=== PATIENT | female | born 1990 | race Caucasian/White ===

== ENCOUNTER 2016-11-06 18:50 | Observation (INO) ==
--- NOTE | 2016-11-06 19:02 | Emergency Department Note ---
Disposition Clinical Impression: UTI (urinary tract infection), Dehydration, , Medical non-compliance Disposition: Admitted As Inpatient Condition: Fair Referrals: NO,PCP [Primary Care Provider] - Forms: Work/School Release, ED Satisfaction Letter Time of Disposition: 21:29 (air whitley) Abdominal Pain HPI - General Chief Complaint: ED Abdominal Pain Stated Complaint: right flank pain /frequent urination Time Seen by Provider: 11/06/16 18:54 Source: patient Mode of arrival: wheelchair Nursing Notes Reviewed: Yes - History of Present Illness HPI Narrative: 26-year-old female who returns after being seen on Tuesday earlier this week where she left before obtaining all laboratory results because she was nervous and anxious patient presents back to the emergency stating she is having bilateral flank pain patient states that she does not feel any better nothing she does makes it worse or better she states that the Suboxone that she is taking is no relief for she denies the lightheadedness dizziness still states she is having some fevers and chills she denies vaginal pain and discharge states her last menstrual period was 3 months 4 months ago denies any difficulty with bowel movement patient has chest pain chest pressure palpitations denies cough hemoptysis or sputum production patient states all the pain is in the flank region she denies any one point specific tenderness Pt Subjective Complaint: flank pain Onset (ago): day(s) (6) Consistency: constant Location: bilateral flank Pain Severity: severe Pain Scale: 10 Quality: aching Improves with: nothing Worsens with: movement Context: other (Miscarriage in April of this year) Associated symptoms: Reports: nausea, fever. Denies: vomiting, diarrhea, chills , constipation, dysuria, hematemesis, hematochezia, melena, hematuria, anorexia , syncope Treatments prior to arrival: none - Related Data Home Medications Medication Instructions Recorded Confirmed Buprenorphine HCl/Naloxone HCl 1 each SL DAILY 11/06/16 11/06/16 [Suboxone 8 mg-2 mg Sl Film] Allergies Allergy/AdvReac Type Severity Reaction Status Date / Time No Known Allergies Allergy Verified 11/02/16 15:53 All systems ED: reviewed and negative except as stated. Constitutional: Denies: fever, chills, weakness Eyes: Denies: eye pain, eye discharge ENT ED: Denies: ear pain, throat pain Cardiovascular: Denies: chest pain, palpitations, dyspnea on exertion Respiratory: Denies: cough, dyspnea, wheezes Gastrointestinal: Reports: nausea. Denies: abdominal pain, vomiting, diarrhea Genitourinary: Reports: dysuria, frequency. Denies: urgency Musculoskeletal: Reports: back pain. Denies: neck pain Integumentary: Denies: rash, abrasion Neurological: Denies: headache, weakness Psychiatric: Denies: anxiety, depression Endocrine: Denies: fatigue, heat or cold intolerance Hematological/Lymphatic: Denies: easy bleeding Abdominal Pain PMH - Past Medical History Medical history: Reports: asthma, hepatitis, other Female Surgical History: Reports: other Psychiatric history: Reports: anxiety - Social History Smoking status: Current every day smoker Alcohol use: Reports: none Drug use: Reports: opiates, IV Drug Use Physical Exam - General Limitations: no limitations General appearance: alert, in no apparent distress, cachectic - Head Head exam: atraumatic, normocephalic, normal inspection - Eye Eye exam: Present: normal appearance, PERRL, EOMI - ENT ENT exam: normal exam, normal oropharynx, mucous membranes moist, TM's normal bilaterally, normal external ear exam - Neck Neck exam: Present: normal inspection, full ROM, trachea midline - Chest Chest inspection: Present: normal inspection, symmetric chest wall rise - Respiratory Respiratory exam: Present: normal lung sounds bilaterally - Cardiovascular Cardiovascular exam: Present: regular rate, normal rhythm, normal heart sounds - Abdominal Exam Abdominal exam: Present: soft, Non-Tender, normal bowel sounds. Absent: mass, pulsatile mass - Extremities Exam Extremities exam: Present: normal inspection, full ROM, normal capillary refill. Absent: tenderness, joint swelling - Expanded Lower Extremity Exam Neurovascular/Tendon exam: Present: normal capillary refill, normal fine/light touch Gait: observed and normal - Back Exam Back exam: Present: normal inspection, tenderness, CVA tenderness (R), CVA tenderness (L), muscle spasm, paraspinal tenderness - Neurological Exam Neurological exam: Present: alert, oriented X3, CN II-XII intact, normal gait - Psychiatric Psychiatric exam: Present: normal affect, normal mood - Skin Skin exam: Present: warm, dry, intact, normal color Course Course Narrative: Aches and seen and examined laboratory data was obtained revealing laboratory data is relatively unchanged with the exception of an increase in the white count from the day prior with her still continued complaining of flank pain options do consider the etiologies for this she has IV fluids running at this time patient is agreeable to stay and have further workup done at this time she has family with her the other day she did not but the results having been noted I contacted Dr. Paz Diego at [facility] explained concerns and need for additional testing which includes an ultrasound considerations though also have to include the possibility of an epidural abscess at abscess because her history of drug abuse with her being a very poor historian in regards to her pain in her back and flank region but one would also have to consider the possibly is of infection within the pelvis revealed the postvisit appendicitis gallbladder disease peptic ulcer disease highly nephritis kidney stone with her being in the first trimester benefits from using ultrasound versus x-ray would be much more beneficial and decreased limps a exposure to the fetus these capabilities are not available my facility Vital Signs Temperature 98.2 F 11/06/16 18:54 Pulse Rate 88 11/06/16 18:54 Respiratory Rate 18 11/06/16 18:54 Blood Pressure 104/75 11/06/16 18:54 O2 Sat by Pulse Oximetry 98 11/06/16 18:54 Temperature 101.4 F H 11/06/16 19:58 Pulse Rate 113 11/06/16 19:58 Respiratory Rate 22 11/06/16 19:58 Blood Pressure 104/75 11/06/16 18:56 O2 Sat by Pulse Oximetry 97 11/06/16 19:58 Oxygen Delivery Oxygen Delivery Room Air Abdominal Pain - Differential Diagnosis Differential Diagnosis: Likely: abdominal pain non-specific, abdominal pain mimics ectopic , calculus of kidney - Medical Records Medical records reviewed: Yes I reviewed the patient's medical records. - Lab Data Lab results reviewed: Yes I reviewed the patient's lab results. Result diagrams: 11/06/16 19:13 11/06/16 19:13 Lab Results 11/06/16 11/06/16 11/06/16 Range/Units 19:13 19:13 19:44 WBC 23.9 H (4.3-11.1) K/mcL RBC 3.74 L (3.82-4.97) M/mcL Hgb 11.2 L (11.5-15.4) g/dL Hct 32.5 L (35.3-44.9) % MCV 86.9 (83.0-100.0) fL MCH 29.9 (28.0-33.3) pg MCHC 34.5 (31.6-35.5) g/dL RDW 13.6 (11.5-14.5) % Plt Count 429 H (140-400) K/mcL MPV 8.3 L (9.4-12.4) fL Immature Gran % 0.7 (0-4) % Seg Neutrophils % 82.2 % Lymphocytes % 11.6 % Monocytes % 5.3 % Eosinophils % 0.0 % Basophils % 0.2 % Neutrophils # 19.7 H (1.6-8.9) K/mcL Lymphocytes # 2.8 (0.6-4.6) K/mcL Monocytes # 1.3 (0.0-1.3) K/mcL Eosinophils # 0.0 (0.0-0.6) K/mcL Basophils # 0.1 (0.0-0.2) K/mcL VBG Lactic Acid 1.3 (0.5-2.2) mmol/L Sodium 131 L (136-145) mEq/L Potassium 4.2 (3.5-4.5) mEq/L Chloride 98 (98-109) mEq/L Carbon Dioxide 21 (19-29) mEq/L BUN 7 (7-20) mg/dL Creatinine 0.58 (0.57-1.11) mg/dL Est GFR ( Amer) > 60 (> 60) Est GFR (Non-Af Amer) > 60 (> 60) BUN/Creatinine Ratio 12 (6-26) Glucose 105 H (70-99) mg/dL Calculated Osmolality 270 L (280-300) Calcium 9.2 (8.6-10.8) mg/dL Total Bilirubin 0.4 (0.2-1.2) mg/dL AST 26 (5-34) Units/L ALT 61 H (0-55) Units/L Alkaline Phosphatase 94 (38-126) Units/L Serum Total Protein 7.0 (6.0-8.3) g/dL Albumin 2.4 L (3.5-5.0) g/dL Globulin 4.6 H (2.4-3.5) g/dL Albumin/Globulin Ratio 0.5 L (1.1-2.2) Critical Care Time Critical Care Time: No
[2016-11-06 19:21] LABS: Basophils % 0.2 %; Hematocrit 32.5 % (35.3-44.9); Hemoglobin 11.2 g/dL (11.5-15.4); Immature Granulocytes % 0.7 % (0-4); Lymphocytes # 2.8 K/mcL (0.6-4.6); Lymphocytes % 11.6 %; Mean Corpuscular HGB Conc 34.5 g/dL (31.6-35.5); Mean Corpuscular Hemoglobin 29.9 pg (28.0-33.3); Mean Corpuscular Volume 86.9 fL (83.0-100.0); Mean Platelet Volume 8.3 fL (9.4-12.4); Monocytes # 1.3 K/mcL (0.0-1.3); Monocytes % 5.3 %; Platelet Count 429 K/mcL (140-400); Red Blood Count 3.74 M/mcL (3.82-4.97); Red Cell Distribution Width 13.6 % (11.5-14.5); Segmented Neutrophils % 82.2 %
[2016-11-06 19:26] LABS: Basophils # 0.1 K/mcL (0.0-0.2); Neutrophils # 19.7 K/mcL (1.6-8.9)
[2016-11-06 19:39] LABS: Alanine Aminotransferase 61 Units/L (0-55); Albumin 2.4 g/dL (3.5-5.0); Albumin/Globulin Ratio 0.5 (1.1-2.2); Alkaline Phosphatase 94 Units/L (38-126); Aspartate Amino Transferase 26 Units/L (5-34); BUN/Creatinine Ratio 12 (6-26); Bilirubin,Total 0.4 mg/dL (0.2-1.2); Blood Urea Nitrogen 7 mg/dL (7-20); Calcium 9.2 mg/dL (8.6-10.8); Carbon Dioxide 21 mEq/L (19-29); Chloride 98 mEq/L (98-109); Globulin 4.6 g/dL (2.4-3.5); Glucose 105 mg/dL (70-99); Osmolality,Calculated 270 (280-300); Potassium 4.2 mEq/L (3.5-4.5); Sodium 131 mEq/L (136-145); eGFR For African Americans > 60 (> 60); eGFR For Non-African Americans > 60 (> 60)
[2016-11-06] MEDS: 0.9 % Sodium Chloride 1,000 ML IVC ONE ×2 (19:56→20:57)
[2016-11-06 20:18] LABS: Bilirubin,Urine Negative (Negative); Blood,Urine Small (Negative); Clarity,Urine Cloudy (Clear); Color,Urine Yellow (Yellow); Glucose,Urine (UA) Normal (Normal); Ketones,Urine Negative (Negative); Leukocyte Esterase,Urine Moderate (Negative); Nitrite,Urine Positive (Negative); Protein,Urine 100 mg/dL (Neg-Trace); Urobilinogen,Urine Normal (Normal)
[2016-11-06] MEDS ORDERED: 0.9 % Sodium Chloride 1,000 ML IVC SCH (20:45)
[2016-11-06] MEDS ORDERED: 0.9 % Sodium Chloride Mini Bag 100 ML ONE (21:06)
[2016-11-06 21:09] LABS: Amphetamine Screen,Urine Positive ng/mL (Cutoff=1000); Barbiturate Screen,Urine Negative ng/mL (Cutoff=200); Benzodiazepines Screen,Urine Negative ng/mL (Cutoff=200); Cannabinoid Screen,Urine Positive ng/mL (Cutoff = 50); Cocaine Screen,Urine Negative ng/mL (Cutoff= 300); Opiate Screen,Urine Negative ng/mL (Cutoff=300); Phencyclidine Screen,Urine Negative ng/mL (Cutoff=25)
[2016-11-06] MEDS ORDERED: Ondansetron ODT 4 MG TAB.RAPDIS SL PRN (22:22)
[2016-11-06] MEDS ORDERED: Naloxone 0.4 MG/ML INJ IVP PRN (22:22)
[2016-11-06] MEDS: 0.9 % Sodium Chloride 1,000 ML IVC SCH (22:34)
[2016-11-07] MEDS: Acetaminophen 325 MG TABLET PO PRN ×4 (02:37→23:25)
[2016-11-07] MEDS: 0.9 % Sodium Chloride 1,000 ML IVC SCH (02:39)
[2016-11-07 04:58] LABS: Basophils % 0.1 %; Eosinophils % 0.2 %; Hematocrit 28.1 % (35.3-44.9); Hemoglobin 9.5 g/dL (11.5-15.4); Immature Granulocytes % 0.4 % (0-4); Lymphocytes % 8.8 %; Mean Corpuscular HGB Conc 33.8 g/dL (31.6-35.5); Mean Corpuscular Hemoglobin 29.1 pg (28.0-33.3); Mean Corpuscular Volume 86.2 fL (83.0-100.0); Mean Platelet Volume 9.1 fL (9.4-12.4); Monocytes # 0.9 K/mcL (0.0-1.3); Monocytes % 6.2 %; Neutrophils # 11.9 K/mcL (1.6-8.9); Platelet Count 329 K/mcL (140-400); Red Blood Count 3.26 M/mcL (3.82-4.97); Red Cell Distribution Width 13.4 % (11.5-14.5); Segmented Neutrophils % 84.3 %
[2016-11-07 05:00] LABS: Lymphocytes # 1.2 K/mcL (0.6-4.6)
[2016-11-07 05:24] LABS: BUN/Creatinine Ratio 12 (6-26); Carbon Dioxide 18 mEq/L (19-29); Chloride 107 mEq/L (98-109); Glucose 90 mg/dL (70-99); Osmolality,Calculated 275 (280-300); Potassium 3.1 mEq/L (3.5-4.5); Sodium 134 mEq/L (136-145); eGFR For African Americans > 60 (> 60); eGFR For Non-African Americans > 60 (> 60)
[2016-11-07 05:28] LABS: Blood Urea Nitrogen 5 mg/dL (7-20)
[2016-11-07 05:47] LABS: Activated Partial Thrombo Time 32.3 Seconds (26.0-36.0)
[2016-11-07 06:58] LABS: INR 1.1; Prothrombin Time 11.5 Seconds (9.4-12.1)
--- NOTE | 2016-11-07 11:01 | Internal Med History&Physical ---
Date of Encounter: 11/07/16 Time of Encounter: 10:30 Assessment and Plan (1) UTI (urinary tract infection) Current visit: Yes Status: Acute She has been started on Rocephin empirically. Will add lactobacillus. Recheck labs in a.m. Qualifiers: Urinary tract infection type: site unspecified Hematuria presence: with hematuria Qualified Code(s): N39.0 - Urinary tract infection, site not specified; R31.9 - Hematuria, unspecified (2) Substance abuse Current visit: Yes Status: Acute She is on maintenance Suboxone. Urine drug screen showed positive findings for THC and amphetamines. Encouraged her to avoid substance use because of (3) Current visit: Yes Status: Acute She has not established yet with an COMPOSITION TILE LAYER. Qualifiers: Weeks of gestation: less than 8 weeks Qualified Code(s): Z3A.01 - Less than 8 weeks gestation of (4) Hypokalemia Current visit: Yes Status: Acute We will give supplemental potassium. (5) Anemia Current visit: Yes Status: Acute We will check anemia testing in a.m. Qualifiers: Anemia type: unspecified type Qualified Code(s): D64.9 - Anemia, unspecified Internal Medicine - H&P: HPI Chief complaint: Dysuria, fever Admitted From: Home Plans for Post Hospital Care: Home History of present illness: Ms. Johnson is a 26 year old female who came to the emergency room November 06 stating she had onset of dysuria, polyuria, fever, and nausea with vomiting onset October 26. She had come to emergency room November 02 but had left before receiving treatment due to "transportation issues". Her symptoms continued so she came to emergency room November 06. She was evaluated and felt to have UTI. She was admitted to [facility] floor for ongoing care needs. She reports 2 previous UTIs last one approximately 3 years ago. She denies hematuria, flank pain, or significant vaginal drainage. Denies other kidney or bladder disorders. She states she learned she was yesterday morning. She had a miscarriage with D&C April 2016. Past Med Surg Social Fam HX - Past Medical History Medical history: asthma, hepatitis, other Psychiatric history: anxiety - Social History Smoking Status: Current every day smoker Packs per day: 0.5 Smokeless Tobacco Status: No Alcohol use: none Drug use: opiates, IV Drug Use Internal Medicine - H&P: Meds Buprenorphine HCl/Naloxone HCl [Suboxone 8 mg-2 mg Sl Film] 1 each SL DAILY [History] Allergies No Known Allergies Allergy (Verified 11/02/16 15:53) All Systems PM: A 10-system review of systems was performed and is negative for pertinent findings except as documented above in the HPI. Review of systems: Gen.: She states her weight has been stable the past few months Cardiovascular: She denies hypertension ME chest pain heart failure DVT or pulmonary embolus Respiratory: She has smoked since age 19 up to 1 pack per day. She has a diagnosis of asthma. GI: She has been diagnosed with hepatitis C. She has had nausea and vomiting the past few days. She denies disorders of her gallbladder or exocrine pancreas : As per history of present illness Neurologic: She denies large distribution strokes, seizures, migraines, or other neurologic problems Endocrine: She denies diabetes thyroid disease or hyperlipidemia Hematology/oncology: She had anemia found on the emergency room labs. She was unaware of this. She denies other blood disorders or malignancies Psychiatric: She has feelings of anxiety at times but denies medication use. [place] skeletal: She denies bone joint or muscle disorders. - Constitutional Vitals: Temp Pulse Resp BP Pulse Ox 98.3 F 90 18 105/69 98 11/07/16 06:57 11/07/16 06:57 11/07/16 06:57 11/07/16 06:57 11/07/16 06:57 Exam: Gen.: She is a well-developed well-nourished female lying in bed who appears in no acute distress HEENT: Head is atraumatic and normocephalic. Eyes: EOMI. There is no scleral icterus. Mouth: Mucosa is moist. Neck: Supple and nontender. There is no thyromegaly or adenopathy noted. Heart: Regular without murmurs gallops or ectopics Lungs: No wheezes or crackles heard. Abdomen: Soft and nontender. No masses or guarding noted. Extremities: There is no cyanosis edema or clubbing noted. Dorsalis pedis and posttibial pulses are 2 over 2 bilaterally. Back: Straight with minimal right flank tenderness Neurologic: Mental status: She is talkative and a good historian. Cranial nerves: Smile is symmetric. Forehead wrinkles bilaterally. Tongue protrudes midline. EOMI. Motor: There is no pronator drift. Cerebellar: Fair to nose is intact bilaterally. Skin: Warm and dry Internal Med - H&P Results - Labs CBC & Chem 7: 11/07/16 03:55 11/07/16 03:55 Labs: Short CBC 11/07/16 Range/Units 03:55 WBC 14.1 H (4.3-11.1) K/mcL Hgb 9.5 L D (11.5-15.4) g/dL Hct 28.1 L (35.3-44.9) % Plt Count 329 (140-400) K/mcL Neutrophils # 11.9 H (1.6-8.9) K/mcL BMP 11/07/16 03:55 Sodium 134 L Potassium 3.1 L D Chloride 107 Carbon Dioxide 18 L BUN 5 L Creatinine 0.41 L Glucose 90 Calcium 8.0 L
[2016-11-07] MEDS: 0.9 % Sodium Chloride w KCl 20 MEQ/1,000 ML MLS IVC SCH ×2 (11:25→23:27)
[2016-11-08 04:48] LABS: Basophils % 0.1 %; Eosinophils # 0.1 K/mcL (0.0-0.6); Eosinophils % 0.5 %; Hematocrit 26.9 % (35.3-44.9); Hemoglobin 9.3 g/dL (11.5-15.4); Immature Granulocytes % 0.5 % (0-4); Lymphocytes # 2.4 K/mcL (0.6-4.6); Lymphocytes % 15.7 %; Mean Corpuscular HGB Conc 34.6 g/dL (31.6-35.5); Mean Corpuscular Hemoglobin 29.8 pg (28.0-33.3); Mean Corpuscular Volume 86.2 fL (83.0-100.0); Mean Platelet Volume 8.7 fL (9.4-12.4); Monocytes # 1.1 K/mcL (0.0-1.3); Monocytes % 7.3 %; Neutrophils # 11.5 K/mcL (1.6-8.9); Platelet Count 337 K/mcL (140-400); Red Blood Count 3.12 M/mcL (3.82-4.97); Red Cell Distribution Width 13.7 % (11.5-14.5); Segmented Neutrophils % 75.9 %
[2016-11-08 05:05] LABS: BUN/Creatinine Ratio 8 (6-26); Calcium 8.3 mg/dL (8.6-10.8); Carbon Dioxide 21 mEq/L (19-29); Chloride 107 mEq/L (98-109); Glucose 85 mg/dL (70-99); Osmolality,Calculated 276 (280-300); Potassium 3.7 mEq/L (3.5-4.5); Sodium 135 mEq/L (136-145); eGFR For African Americans > 60 (> 60); eGFR For Non-African Americans > 60 (> 60)
[2016-11-08 05:19] LABS: Blood Urea Nitrogen 3 mg/dL (7-20)
[2016-11-08 07:24] VITALS: BP 93/54
[2016-11-08] MEDS: Acetaminophen 325 MG TABLET PO PRN (07:50)
--- NOTE | 2016-11-08 09:39 | Discharge Summary ---
Date of Encounter: 11/08/16 Time of Encounter: 09:30 - Discharge Diagnosis (1) UTI (urinary tract infection) Priority: Primary Status: Acute Qualifiers: Urinary tract infection type: site unspecified Hematuria presence: with hematuria Qualified Code(s): N39.0 - Urinary tract infection, site not specified; R31.9 - Hematuria, unspecified (2) Substance abuse Priority: Secondary Status: Acute (3) Priority: Secondary Status: Acute Qualifiers: Weeks of gestation: less than 8 weeks Qualified Code(s): Z3A.01 - Less than 8 weeks gestation of (4) Hypokalemia Priority: Secondary Status: Resolved (5) Anemia Priority: Secondary Status: Acute Qualifiers: Anemia type: unspecified type Qualified Code(s): D64.9 - Anemia, unspecified - Discharge Medications Prescriptions: Cefuroxime PO [Ceftin] 500 mg PO Q12HR #10 tablet Lactobacillus [Culturelle] 1 each PO BID #10 cap.sprink Home Medications: Buprenorphine HCl/Naloxone HCl [Suboxone 8 mg-2 mg Sl Film] 1 each SL DAILY [History] Cefuroxime PO [Ceftin] 500 mg PO Q12HR #10 tablet 11/08/16 [Rx] Lactobacillus [Culturelle] 1 each PO BID #10 cap.sprink 11/08/16 [Rx] Allergies/Adverse Reactions: Allergies No Known Allergies Allergy (Verified 11/02/16 15:53) Date of admission: 11/06/16 21:32 Primary care physician: PCP NO - Patient Status Disposition: Home, Self-Care Condition: Fair Functional capacity at discharge: independent ambulation Overall status at discharge: patient is progressing back to baseline - Discharge Instructions Follow Up With: NO,PCP [Primary Care Provider] - 1 week - Diet and Activity Activity: resume usual activities as tolerated Diet: advance to your usual diet Hospital course: Ms. Johnson is a 26 year old female who came to the emergency room November 06 stating she had onset of dysuria, polyuria, fever, and nausea with vomiting onset October 26. She had come to emergency room November 02 but had left before receiving treatment due to "transportation issues". Her symptoms continued so she came to emergency room November 06. She was evaluated and felt to have UTI. She was admitted to [facility] for ongoing care needs. Initial orders were written by the emergency room physician. I saw her on November 07 and performed the history and physical. She was started on IV Rocephin. Blood cultures returned showing no growth. Urine culture report is pending time of discharge. She had clinical improvement with WBC decreasing to 15.1 the day of discharge with improvement in the left shift. She remained afebrile the last 24 hours of hospitalization. She will be discharged home on Ceftin and lactobacillus for 5 additional days. Anemia testing was ordered with results pending at time of this dictation. She was given supplement potassium and hypokalemia resolved. On November 08 she felt stable for discharge home. I encouraged her to follow with a PCP and RN BSN within 1 week. I told her the PCP and/or RN BSN could follow- up on anemia testing. I told her she would likely be started on folic acid and vitamins since she is . I encouraged her to avoid substance abuse. - Time Spent with Patient Total time spent providing and/or coordinating discharge services: - Constitutional Vitals: Temp Pulse Resp BP Pulse Ox 98.5 F 90 16 93/54 97 11/08/16 07:23 11/08/16 07:23 11/08/16 07:23 11/08/16 07:23 11/08/16 07:23
[2016-11-08 10:50] LABS: % Iron Saturation 5 % (15-50); Iron 13 mcg/dL (50-170); Transferrin 206 mg/dL (180-382)
[2016-11-08 11:07] LABS: Ferritin 98 ng/ml (5-204)
[2016-11-08 11:21] LABS: Folate 4.8 ng/mL (7.0-31.4)
[2016-11-08 18:19] LABS: Acinetobacter baumannii by PCR Not Detected (Not Detect); Enterococcus by PCR Not Detected (Not Detect); Staphylococcus aureus by PCR Not Detected (Not Detect); Streptococcus agalactiae(B)PCR Not Detected (Not Detect); Streptococcus by PCR Not Detected (Not Detect); Streptococcus pneumoniae PCR Not Detected (Not Detect); Streptococcus pyogenes (A) PCR Not Detected (Not Detect); blaKPC Carbapenem-Resist Gene Not Detected (Not Detect); mecA Methicillin-Resist Gene Not Detected (Not Detect); vanA/B Vancomycin-Resist Genes Not Detected (Not Detect)
[2016-11-08 18:20] LABS: Candida albicans by PCR Not Detected (Not Detect); Candida glabrata by PCR Not Detected (Not Detect); Candida krusei by PCR Not Detected (Not Detect); Candida parapsilosis by PCR Not Detected (Not Detect); Candida tropicalis by PCR Not Detected (Not Detect); Escherichia coli by PCR ***DETECTED*** (Not Detect); Klebsiella oxytoca by PCR Not Detected (Not Detect); Klebsiella pneumoniae by PCR Not Detected (Not Detect); Pseudomonas aeruginosa by PCR Not Detected (Not Detect); Serratia marcescens by PCR Not Detected (Not Detect)
== END 2016-11-08 10:45 | disposition home or self-care (01) ==
LOC: INPPIK 18:50 → EMEROOPIK 18:50 → INPPIK 22:11
PROVIDERS: ADMIT Internal Medicine; ATTEND Internal Medicine